=== PATIENT | male | born 1995 | race Caucasian/White ===

== ENCOUNTER 2016-10-10 05:07 | Emergency (ER) | payer OTHER ==
[2016-10-10 05:25] LABS: BASO % 0.2 % (0.2-1.2); EOS # 0.1 10_X3_uL (0.0-0.5); EOS % 0.7 % (0.8-7.0); GRAN # 8.9 10_X3_uL (1.8-5.4); GRAN % 69.3 % (34.0-67.9); HEMATOCRIT 43.9 % (40-51); HEMOGLOBIN 15.9 g/dL (13.7-17.5); LYMPH # 2.7 10_X3_uL (1.3-3.6); MEAN CORPUSCULAR HEMOGLOBIN 30.9 pg (27.0-33.0); MEAN CORPUSCULAR HGB CONC 36.2 g/dL (32.0-36.0); MEAN CORPUSCULAR VOLUME 85.4 fL (79-92); MEAN PLATELET VOLUME 9.8 fl (7.5-11.5); MONO # 1.1 10_X3_uL (0.3-0.8); MONO % 8.8 % (5.3-12.2); PLATELET COUNT 204 x10_3/uL (163-337); RED BLOOD COUNT 5.14 x10_6/uL (4.6-6.1); WHITE BLOOD COUNT 12.8 x10_3/uL (4.2-9.1)
[2016-10-10 05:42] LABS: ALBUMIN 4.5 gm/dL (3.4-5.0); ALKALINE PHOSPHATASE 83 U/L (50-136); ALT/SGPT 27 U/L (7.53-40.17); AMYLASE 53 U/L (15.62-74.58); AST/SGOT 20 U/L (6.66-35.34); BILIRUBIN,TOTAL 0.85 mg/dL (0.0-1.0); BLOOD UREA NITROGEN 14 mg/dL (7-18); CALCIUM 8.8 mg/dL (8.7-10.7); CARBON DIOXIDE 23 mmol/L (21-32); CREATININE 0.7 mg/dL (0.6-1.3); GLUCOSE,RANDOM 92 mg/dL (70-99); LIPASE 19 U/L (6.75-60.75); POTASSIUM 3.6 mmol/L (3.5-5.1); SODIUM 139 mmol/L (136-145); TOTAL PROTEIN 6.9 gm/dL (6.4-8.2)
== END 2016-10-10 08:13 | disposition home or self-care (01) ==
LOC: ER 05:07
PROVIDERS: General Practice
DX: R11.2 Nausea with vomiting, unspecified (principal); F17.210 Nicotine dependence, cigarettes, uncomplicated; Z88.0 Allergy status to penicillin
CPT/HCPCS: 36415; 80053; 82150; 83690; 85025; 96361; 96374; 99283-25